=== PATIENT | female | born 1995 | race Caucasian/White ===

== ENCOUNTER 2024-05-24 09:12 | Outpatient (REF) | payer MEDICAID, SELFPAY ==
[2024-05-24 12:21] LABS: Alanine Aminotransferase 13 U/L (0-31); Albumin Level 4.3 g/dL (3.5-5.0); Alkaline Phosphatase 57 U/L (39-117); Anion Gap 11 (12-20); Aspartate Amino Transferase 26 U/L (5-31); Bilirubin Total 0.4 mg/dL (0.0-1.0); Blood Urea Nitrogen 12 mg/dL (9-16); Calcium 9.5 mg/dL (8.4-10.2); Carbon Dioxide 25 mmol/L (22-29); Chloride 109 mmol/L (96-108); Estimated Glomerular Filt Rate > 60; Glucose Random 90 mg/dL (60-115); Sodium 141 mmol/L (135-145); Total Protein 6.9 g/dL (6.5-8.0)
[2024-05-24 12:23] LABS: TSH reflex Free T4 1.17 uIU/mL (0.32-4.0)
[2024-05-29 13:49] LABS: Testosterone-Albumin 4.6 g/dL (3.6-5.1); Testosterone-Bioavailable 6.1 ng/dL (0.5-8.5); Testosterone-Free 2.9 pg/mL (0.2-5.0); Testosterone-SHBG 56 nmol/L (17-124); Testosterone-Total 38 ng/dL (2-45)
[2024-05-31 09:03] LABS: Prolactin 5.6 ng/mL
[2024-05-31 12:22] LABS: DHEA Sulfate 169 mcg/dL (14-349)
== END 2024-05-24 09:13 | disposition home or self-care (01) ==
LOC: HO.HHCL 09:12
PROVIDERS: Visit Provider Registered Nurse
DX: L68.0 Hirsutism (principal)
CPT/HCPCS: 36415; 80053; 82627; 83498; 84146; 84403; 84443

== ENCOUNTER 2024-10-07 13:15 | Outpatient (REF) | payer MEDICAID, SELFPAY ==
--- OUTSIDE RECORDS SUMMARY | 2024-10-07 13:44 | XMS_ITS | Encounter Summary ---
Author Organization [employer] Address [address] [place] [address] 7 [place] [address] Care Team Providers Care Line Closer Name Role Phone [facility] Primary Care Provider [phone] Reason for Visit * Reason Onset Date Comments Nurse Triage 10/05/2024 Encounter Details Date Type Department Care Team ([facility] st Contact Info) Description 10/05/2024 Telephone [facility] MEDICINE [address] [place], [place] [phone] [facility] [address] [place] [address] Nurse Triage Social History Tobacco Use Types Packs/Day Years Used Date Smoking Tobacco: Never Smokeless Tobacco: Never Alcohol Use Standard Drinks/Week Comments Never 0 (1 standard drink = 0.6 oz pur e alcohol) Depression Answer Date Recorded Patient Health Questionnaire-9 Score 17 05/23/2024 Patient Health Questionnaire-9 Score 17 05/23/2024 Last PHQ-9: Questionnaire Data Not on file 1 Housing Stability Answer Date Recorded What is your housing situation today? I have jorge silverio 05/23/[address] you li ve. Do you have problems with any of the following? None of the above 05/23/2024 Food Insecurity Answer Date Recorded Within the past 12 months, y ou worried that your food would run out before you got money to buy more: Often true 05/23/2024 Within the past 12 months,th e food you bought just didn't last and you didn't have enough money to get more: Often true 02/2024 Transportation Answer Date Recorded In the past 12 months, has l ack of transportation kept you from medical appts, meetings, work or from getting things needed for daily living? No 05/23/2024 Utilities Answer Date Recorded In the past 12 months, has t he electric, gas, oil or water company threatened to shut off services in your home? No 05/23/2024 Depression Answer Date Recorded Patient Health Questionnaire-2 Score 4 05/23/2024 Internet Access Answer Date Recorded Internet Access Q1 Yes 05/23/2024 Internet Access Q2 Not on file 05/23/2024 Comments No Sex and Gender Information Value Date Recorded Sex Assigned at Female 06/16/2022 10:31 AM EDT Legal Sex Female 10:31 AM EDT Gender Identity Female 06/16/2022 10:31 AM EDT Sexual Orientation Choose not to disclose 2021 10:31 AM EDT documented as of this encounter Miscellaneous Notes * Telephone Encounter - Yanely William, [place] - 10/05/2024 4:12 PM EST Triage call returned to patient who reports ongoing issue with excessive sweating. Patient notes ithas been since last child was born three years ago. Feels that it may be hormonal but that she has not discussed it with PCP. Patient with known PCOS and had tubal ligation. Last menses 09/17/24. Has ex cessive perspiration that she feels is sometimes triggered with emotion. If she is happy and going somewhere she may have to change her clothes as sweat soaks axilla, groin and sometimes stomach area. Patient does not get facial flushing and does not feel hot when this happens. Patient also with concern of possible STI exposure with some pelvic discomfort to the left side. No current fever or postural changes. No nausea or vomiting. No vaginal discharge or odor. Disposition reviewed and patientin agreement with plan. No PCP or Team appts. Available at time of call. [facility] hours and availability provided for patient evaluation. Triage nurse informed the patient may have a wait of 1-2 hours because Walk In [facility] may have delays due to patient volume or symptom acuity. Insurance verified as active. Multiple (2) protocols were used on this call. Disposition for Call: See in Office or Video Visit Today or Tomorrow Protocol Used: No Protocol Available (Adult) Protocol-Based Disposition: See in Office or Video Visit Today or Tomorrow Video visit not offered Positive Triage Question: * Nursing judgment * All higher-acuity triage questions were negative Care Advice Discussed: * Reasons To Call Back - New symptoms develop - You become worse Protocol Used: Pelvic Pain - Female (Adult) Protocol-Based Disposition: See in Office or Video Visit within 3 Days Positive Triage Question: * Patient is worried they have a sexually transmitted infection (STI) * All higher-acuity triage questions were negative Care Advice Discussed: * Pain Medicines * Reasons To Call Back - Severe pain lasts over 1 hour - Constant pain lasts over 2 hours - Intermittent pain (comes and goes, cramps) lasts over 48 hours - You become worse * Telephone Encounter - Kristan Raymond - 10/05/2024 3:50 PM EST Symptom: Excessive Sweating Outcome: Schedule an appointment to be seen within 3 days Reason: Caller denied all higher acuity questions The caller accepted this outcome. documented in this encounter Plan of Treatment Not on file documented as of this encounter Visit Diagnoses Not on filedocumented in this encounter Additional Health Concerns Assessment Noted Time PHQ-9 Depression Total Score: 17 024 2:42 PM EDT documented as of this encounter Care Teams Line Closer Relationship Specialty Start Date End Date GreendaleTash FNP [address] [place] [id number] PCP - General Family Medicine 03/10/24 documented as of this encounter
--- OUTSIDE RECORDS SUMMARY | 2024-10-07 13:44 | XMS_ITS | Clinical Summary ---
Author Organization [facility] Address [address] [place] [address] Phone Care Team Providers Care Loom Control Chain Builder Name Role Phone Paz Hooker PRODUCT DEVELOPMENT SPECIALIST Primary Care Provider [phone] Allergies No known active allergies Encounters Date Type Department Care Team Description 08/16/2024 9:45 AM EST Office Visit Orthopedic Surgery [address] [phone] Davonte Armstrong DPM Bilateral foot pain (Primary Dx); Pes planus of both feet; Metatarsalgia of right foot; Metatarsalgia of left foot; Eccrine poroma of foot, left from Last 3 Months Social History Tobacco Use Types Packs/Day Years Used Date Smoking Tobacco: Never Assessed Comments Unknown Sex and Gender Information Value Date Recorded Sex Assigned at Not on file Legal Sex Female 1:01 PM EST Gender Identity Not on file Sexual Orientation Not on file Last Filed Vital Signs Vital Sign Reading Time Taken Comments Blood Pressure - - Pulse - - Temperature - - Respiratory Rate - - Oxygen Saturation - - Inhaled Oxygen Concentration - - Weight 74.8 kg (165 lb) 08/16/2024 10:16 AM EST Height 165.1 cm (5' 5 ) 08/16/2024 10:16 AM EST Body Mass Index 27.46 08/16/2024 10:16 AM EST Plan of Treatment Upcoming Encounters Date Type Department Care Team (Late st Contact Info) Description 10/10/2024 9:15 AM EST Office Visit Orthopedic Surgery [facility] [address] [phone] Davonte Armstrong DPM [address] [address] Health Maintenance Due Date Last Done Comments COVID-19 Vaccine (#1) 1998 Hepatitis B Vaccines (1 of 3 - 19+ 3-dose series) 2012 Pneumococcal Vaccine: Pediatrics (0 to 5 Years) and At-Risk Patients (6 to 64 Years) (1 of 2 - PCV) 2012 Cervical Cancer Screening: P ap Smear 2014 Hepatitis C Screening 09/15/2023 Social Influencers of Health Screening 09/15/2023 Influenza Vaccine (#1) 2024 05/31/2018 Depression Screening 05/23/2025 05/23/2024 DTaP,Tdap,and Td Vaccines (3 - Td or Tdap) 03/05/2032 03/05/2022, 10/11/2018 HIV Screening Completed 03/05/2022 HIB Vaccines Aged Out No longer eligi ble based on patient's age to complete this topic HPV Vaccines Aged Out No longer eligi ble based on patient's age to complete this topic Hepatitis A Vaccines Aged Out No long er eligible based on patient's age to complete this topic IPV Vaccines Aged Out No longer eligi ble based on patient's age to complete this topic MMR Vaccines Aged Out No longer eligi ble based on patient's age to complete this topic Meningococcal ACWY Vaccine Aged Out N o longer eligible based on patient's age to complete this topic Meningococcal B Vacine Aged Out No lo nger eligible based on patient's age to complete this topic RSV Immunization Patients Under 20 months Aged Out No longer eligible b ased on patient's age to complete this topic Varicella Vaccines Aged Out No longer eligible based on patient's age to complete this topic Procedures Procedure Name Priority Date/Time Associated Diagnosis Comments XR FOOT 3+ VIEWS BILAT Routine 08/16/2024 10:06 AM EST Bilateral foot pain from Last 3 Months Results * XR Foot 3+ Views bilat (08/16/2024 10:06 AM EST) Anatomical Region Laterality Modality Lower Extremities, Foot Bilateral Computed Radiography Narrative 08/30/2024 7:50 PM EST Left foot 3 views weightbearing: Rectus alignment of the forefoot on the hindfoot. ??No fractures or dislocations. ??No joint space narrowing. ?? Enlarged tailor's bunion with frontal plane rotation and contracture of the fifth digit Right foot 3 views weightbearing: No fractures or dislocations. ??No joint space narrowing. ??Increased kites angle with talar head uncovering. ?? Slight hallux interphalangeal joint abductus. ??Large tailor's bunion with rotational deformity of the fifth digit us Davonte Armstrong DPM IMG XR PROCEDURES Final Res ult from Last 3 Months Insurance MEDICAID - [place] Care Teams Loom Control Chain Builder Relationship Specialty Start Date End Date Paz Hooker FNP [address] [place] [address] PCP - General Nurse Practitioner 05/31/24
--- OUTSIDE RECORDS SUMMARY | 2024-10-07 13:44 | XMS_ITS | Encounter Summary ---
Author Organization [employer] Address [address] [facility] 7 [place] [address] Care Team Providers Care Foil Stamp Operator Name Role Phone [employer]sh Painting TACK CLEANER Primary Care Provider [phone] Encounter Details Date Type Department Care Team ([facility] st Contact Info) Description 10/07/2024 9:45 AM EST Office Visit [facility] MED[facility]INE [address] [place], [place] [phone] Paz Hooker NP [address] [place], [place] [phone] Vaginal discharge (Primary Dx); Exposure to sexually transmitted infection Social History Tobacco Use Types Packs/Day Years [...] AM EDT documented as of this encounter Last Filed Vital Signs Vital Sign Reading Time Taken Comments Blood Pressure 102/67 10/07/2024 10:10 AM EST Pulse 69 10/07/2024 10:10 AM EST Temperature 36.4 ??C (97.5 ??F) 10/07/2024 10:[address] Respiratory Rate 18 10/07/2024 10:10 AM EST Oxygen Saturation 99% 10/07/2024 10:10 AM EST Inhaled Oxygen Concentration - - Weight 53.8 kg (118 lb 9.6 oz) 10/07/2024 10:10 AM EST Height 152.4 cm (5') 10/07/2024 10:10 AM EST Body Mass Index 23.16 10/07/2024 10:10 AM EST documented in this encounter Progress Notes * Paz Hooker, JOSE - 10/07/2024 9:45 AM EST Subjective Archana Wong is a 28 y.o. female who presents to the office for follow up visit - chronic conditions. Current concerns: Vaginal discharge, pt reports partner has history of cheating Pain during intercourse started 2 days ago, no bleeding, some discharge, mild odor bloating, has happened before did not have a pain with a yeast infection Unprotected intercourse- uncertain if partner is seeing other people Tubal ligation No burning on urination Patient Active Problem List Diagnosis Abdominal trauma Anxiety Body mass index (BMI) of 20 to 24 Exercise-induced asthma Genital herpes simplex Migraine headache PCOS (polycystic ovarian syndrome) Plantar callus Persistent depressive disorder Stress Vaginal discharge Exposure to sexually transmitted infection Pap 03/07 nil, hpv neg Review of Systems Constitutional: Negative for activity change. HENT: Negative for congestion. Respiratory: Negative for apnea. Cardiovascular: Negative for chest pain. Genitourinary: Positive for pelvic pain. Negative for difficulty urinating and urgency. Musculoskeletal: Negative for arthralgias. Neurological: Negative for dizziness and facial asymmetry. Hematological: Negative for adenopathy. Objective Visit Vitals BP 102/67 (BP Location: Left arm, Patient Position: Sitting, BP Cuff Size: Adult) Pulse 69 Temp 97.5 ??F (36.4 ??C) (Oral) Resp 18 Ht 5' (1.524 m) Wt 118 lb 9.6 oz (53.8 kg) SpO2 99% BMI 23.16 kg/m?? OB Status Having periods Smoking Status Never BSA 1.51 m?? Physical Exam Constitutional: Appearance: Normal appearance. Cardiovascular: Rate and Rhythm: Regular rhythm. Heart sounds: Normal heart sounds. Pulmonary: Breath sounds: Normal breath sounds. Abdominal: Palpations: Abdomen is soft. Tenderness: There is no abdominal tenderness. Genitourinary: General: Normal vulva. Labia: Right: No rash. Left: No rash. Vagina: Vaginal discharge present. Cervix: Discharge and friability present. No cervical motion tenderness or erythema. Uterus: Not enlarged. Neurological: Mental Status: She is alert. Assessment/Plan Problem List Items Addressed This Visit Vaginal discharge - Primary Current Assessment & Plan And pain with intercourse, Reasuring exam though scant discharge was noted, Testing as ordered below Barrier protection reviewed, Pt has had tubal ligation Will treat pending results of tests Relevant Orders Chlamydia/N. Gonorrhoeae RNA, TMA, Urogenitial Bacterial Vaginosis Panel Exposure to sexually transmitted infection Relevant Orders HIV-1/2 Antigen and Antibodies, Fourth Generation, with Reflexes Hepatitis C Antibody with Reflex to HCV, RNA, Quantitative, Real-Time PCR RPR (Monitor) with Reflex to Titer Current Outpatient Medications Medication Sig Dispense Refill acetaminophen (Tylenol) 500 MG tablet Take 2 tablets (1,000 mg) by mouth every 6 (six) hours if needed for moderate pain or fever for up to 25 doses. 50 tablet 0 albuterol (ProAir HFA) 108 (90 Base) MCG/ACT inhaler Inhale 2 puffs every 4 (four) hours if needed for shortness of breath or wheezing. 18 g 2 ibuprofen 400 MG tablet Take 1 tablet (400 mg) by mouth every 6 (six) hours if needed for moderate pain or fever for up to 30 doses. 30 tablet 0 ketoconazole (NIZOral) 2 % cream Apply bid to affected area of foot 60 g 3 lidocaine (Lidoderm) 5 % patch Apply topically to affected areas. Leave on for up to 12 hours 30 patch 1 Salicylic Acid 40 % misc Apply 1 each topically every other day if needed (callus and corns). Applydirectly over affected area; leave in place for 48 hours. May repeat procedure every 48 hours as needed for up to 14 days. 25 each 1 No current facility-administered medications for this visit. documented in this encounter Miscellaneous Notes * Assessment & Plan Note - Paz Hooker NP - 10/07/2024 10:29 AM ESTAssociated Problem(s): Vaginal discharge And pain with intercourse, Reasuring exam though scant discharge was noted, Testing as ordered below Barrier protection reviewed, Pt has had tubal ligation Will treat pending results of tests documented in this encounter Plan of Treatment Scheduled Orders Name Type Priority Associated Diagnoses Orde r Schedule HIV-1/2 Antigen and Antibodies, Fourth Generation, with Reflexes Lab Routine Exposure to sexually transmitted infection Expected: 10/07/2024 (Approximate), Expires: 10/07/2025 Hepatitis C Antibody with Reflex to HCV, RNA, Quantitative, Real-Time PCR Lab Routine Exposure to sexually transmitted infection Expected: 10/07/2024, Expires: 10/07/2025 RPR (Monitor) with Reflex to??Titer Lab Routine Exposure to sexually transmitted infection Expected: 10/07/2024, Expires: 10/07/2025 Chlamydia/N. Gonorrhoeae RNA, TMA, Urogenitial Microbiology Routine Vaginal discharge Ordered: 10/07/2024 Bacterial Vaginosis Panel Microbiology Routine Vaginal discharge Ordered: 10/07/2024 documented as of this encounter Visit Diagnoses Diagnosis Vaginal discharge- Primary Leukorrhea, not specified as infective Exposure to sexually transmitted infection documented in this encounter Additional Health Concerns Assessment Noted Time PHQ-9 Depression Total Score: 17 024 2:42 PM EDT documented as of this encounter Care Teams Foil Stamp Operator Relationship Specialty Start Date End Date Tash Painting FNP [address] [place] [id number] PCP - General Family Medicine 03/10/24 documented as of this encounter
--- OUTSIDE RECORDS SUMMARY | 2024-10-07 13:44 | XMS_ITS | Clinical Summary ---
Author Organization [employer] Address [address] [facility] [address] [place] [address] Care Team Providers Care Visual Artist Name Role Phone Tash Painting AGRICULTURAL PRODUCTION ENGINEER Primary Care Provider [phone] Allergies No known active allergies Medications * This document contains information received from the source organization and may not represent a complete record from that organization. ketoconazole (NIZOral) 2 % cream Apply bid to affected area of foot 60 g 3 3 Active albuterol (ProAir HFA) 108 (90 Base) MCG/ACT inhaler Inhale 2 puffs every 4 (four) hours if needed for shortness of breath or wheezing. 18 g 2 3 Active Salicylic Acid 40 % misc Apply 1 each topically every other day if needed (callus and corns). Apply directly over affected area; leave in place for 48 hours. May repeat procedure every 48 hours as needed for up to 14 days. 25 each 1 4 Active acetaminophen (Tylenol) 500 MG tablet Take 2 tablets (1,000 mg) by mouth every 6 (six) hours if needed for moderate pain or fever for up to 25 doses. 50 tablet 4 Active ibuprofen 400 MG tablet Take 1 tablet (400 mg) by mouth every 6 (six) hours if needed for moderate pain or fever for up to 30 doses. 30 tablet 4 Active lidocaine (Lidoderm) 5 % patchIndication s:Chronic bilateral low back pain with bilateral sciatica Apply topically to affected areas. Leave on for up to 12 hours 30 patch 1 4 Active Active Problems Problem Noted Date Diagnosed Date Vaginal discharge 10/07/2024 Assessment & Plan (10/07/2024 10:30 AM EST): And pain with intercourse, Reasuring exam though scant discharge was noted, Testing as ordered below Barrier protection reviewed, Pt has had tubal ligation Will treat pending results of tests Exposure to sexually transmitted infection 10/07 Persistent depressive disorder 05/23/2024 Assessment & Plan (05/23/2024 3:01 PM EDT): During [facility] Consult Archana presenting with depressed mood, Tearful, crying spells , irritable mood, loss of interests/pleasure , isolating, change in appetite or weight reduce appetite, changes in sleep difficulty falling asleep and difficulty staying asleep , psychomotor retardation, fatigue/loss of energy, difficulty concentrating, indecisiveness and excessive worry/anxiety, difficulty controlling worry, anxiety/worry associated to restlessness and/or feeling keyed-up/On edge , easily fatigued , irritability, and sleep disturbance difficulty falling asleep and difficulty staying asleep , and sense of dread ; for a period of 18+ mo, for most or all symptoms in the context of family issues. Archana has three children. Reports having a difficult time finding a routine that also prioritizes her needs. She was emotionally overwhelmed during session today. Pt has been hiding her emotions for so long due to fear of being judged by others. Pt reports struggling with anger since young. clinician engaged pt with active/reflective listening. Reviewed and assessed for risk, current stressors and protective factors. Explored strategies to use to create a routine at home where she could also take care of her needs. Discussed importance of improving her sleep hygiene and eat healthy. Pt was self-referred to [facility] programs for same-day appointments. Stress 05/23/2024 Assessment & Plan (05/23/2024 3:01 PM EDT): During [facility] Consult Archana presenting with depressed mood, Tearful, crying spells , irritable mood, loss of interests/pleasure , isolating, change in appetite or weight reduce appetite, changes in sleep difficulty falling asleep and difficulty staying asleep , psychomotor retardation, fatigue/loss of energy, difficulty concentrating, indecisiveness and excessive worry/anxiety, difficulty controlling worry, anxiety/worry associated to restlessness and/or feeling keyed-up/On edge , easily fatigued , irritability, and sleep disturbance difficulty falling asleep and difficulty staying asleep , and sense of dread ; for a period of 18+ mo, for most or all symptoms in the context of family issues. Archana has three children. Reports having a difficult time finding a routine that also prioritizes her needs. She was emotionally overwhelmed during session today. Pt has been hiding her emotions for so long due to fear of being judged by others. Pt reports struggling with anger since young. clinician engaged pt with active/reflective listening. Reviewed and assessed for risk, current stressors and protective factors. Explored strategies to use to create a routine at home where she could also take care of her needs. Discussed importance of improving her sleep hygiene and eat healthy. Pt was self-referred to [facility] programs for same-day appointments. Plantar callus 01/18/2024 Assessment & Plan (01/19/2024 2:52 PM EDT): Referral to podiatry for ongoing management Abdominal trauma 04/07/2023 Body mass index (BMI) of 20 to 24 04/07/2023 Genital herpes simplex 04/07/2023 Overview (04/07/2023): Dx'd via labwork 05/2018 via [email or web address]. Had never had an outbreak. Migraine headache 04/07/2023 Overview (04/07/2023): Had more migraines when in school, but not often now. Saw specialist in past. Now will just try to sleep rather than take otc meds for the migraine/[place] and it helps. Hasn't had one in a long time now. Anxiety 03/05/2022 Assessment & Plan (05/23/2024 3:01 PM EDT): During [facility] Consult Archana presenting with depressed mood, Tearful, crying spells , irritable mood, loss of interests/pleasure , isolating, change in appetite or weight reduce appetite, changes in sleep difficulty falling asleep and difficulty staying asleep , psychomotor retardation, fatigue/loss of energy, difficulty concentrating, indecisiveness and excessive worry/anxiety, difficulty controlling worry, anxiety/worry associated to restlessness and/or feeling keyed-up/On edge , easily fatigued , irritability, and sleep disturbance difficulty falling asleep and difficulty staying asleep , and sense of dread ; for a period of 18+ mo, for most or all symptoms in the context of family issues. Archana has three children. Reports having a difficult time finding a routine that also prioritizes her needs. She was emotionally overwhelmed during session today. Pt has been hiding her emotions for so long due to fear of being judged by others. Pt reports struggling with anger since young. clinician engaged pt with active/reflective listening. Reviewed and assessed for risk, current stressors and protective factors. Explored strategies to use to create a routine at home where she could also take care of her needs. Discussed importance of improving her sleep hygiene and eat healthy. Pt was self-referred to [facility] programs for same-day appointments. Exercise-induced asthma 11/11/2016 Overview (04/07/2023): Albuterol prn. PCOS (polycystic ovarian syndrome) 11/11/2016 Encounters Date Type Department Care Team Description 10/07/2024 9:45 AM EST Office Visit [facility] [address] [place] [phone] Paz Hooker NP Vaginal discharge (Primary Dx); Exposure to sexually transmitted infection 10/05/2024 Telephone [facility] [address] [place] [address] Tash Painting FNP Nurse Triage from Last 3 Months Immunizations Name Administration Dates Next Due Influenza, IIV3, injectable 05/31/2018 Tdap 03/05/2022,10/11/2018 Family History Medical History Relation Name Comments Diabetes type II Brother Heart murmur Brother Hypertension Father Colon cancer Father's Brother Heart murmur Mother Breast cancer Mother's Sister Relation Name Status Comments Brother Father Father's Brother Mother Mother's Sister Social History Tobacco Use Types Packs/Day Years Used Date Smoking Tobacco: Never Smokeless Tobacco: Never Tobacco Cessation:Counseling Given: Not Answered Alcohol Use Standard Drinks/Week Comments Never 0 [...] not to disclose 2021 10:31 AM EDT Last Filed Vital Signs Vital Sign Reading [...] Mass Index 23.16 10/07/2024 10:10 AM EST Plan of Treatment Health Maintenance Due Date Last Done Comments Family Planning (PISQ) 2008 Hepatitis B Vaccines (1 of 3 - 19+ 3-dose series) 2012 Pneumococcal Vaccine: Pediatrics (0 to 5 Years) and At-Risk Patients (6 to 49) Years) (1 of 2 - PCV) 2012 COVID-19 Vaccine ( - 2023-2 5 season) 2024 Influenza Vaccine (#1) 2024 05/31/2018 Depression Monitoring (PHQ-9) 11/21/2024, 05/23/2024 Pap Smear 03/05/2025 03/05/2022 Alcohol/Substance Use Screening 05/23/2025 05/23/2024 Depression Screening 05/23/2025 05/23/2024, 05/23/2024 SDOH Screening 05/23/2025 05/23/2024 Tobacco Screening 10/07/2025 10/07/2024 Cervical Cancer Screening 03/05/2027 HPV/Cotest 03/05/2027 03/05/2022 DTaP/Tdap/Td Vaccines (3 - T d or Tdap) 03/05/2032 03/05/2022, 10/11/2018 Zoster Vaccines (1 of 2) 12/04/2043 RSV Patients and Patients Aged 60 years or older (1 - 1-dose 75+ series) 2068 HIV Screening Completed 03/05/2022 Hepatitis C Screening Completed 03/05/2022 HIB Vaccines Aged Out [...] patient's age to complete this topic Meningococcal Vaccine Aged Out No jourdan eulalia eligible based on patient's age to complete this topic RSV under 20 months Aged Out No longe r eligible based on patient's age to complete this topic Rotavirus Vaccines Aged Out No longer eligible based on patient's age to complete this topic Procedures Procedure Name Priority Date/Time Associated Diagnosis Comments ZZZ HISTORICAL HEPATITIS C AB W/REFL TO HCV RNA, QN, PCR Routine 03/05/2022 11:32 AM EDT HIV 1/2 ANTIGEN/ANTIBODY, FOURTH GENERATION W/RFL Routine 03/05/2022 11:32 AM EDT THINPREP IMAGING PAP AND HPV MRNA E6/E7, WITH CT/NG, TRICHOMONAS Routine 03/05/2022 12:00 AM EDT from Last 3 Months or Most Recently Relevant to Health Maintenance Results * HEPATITIS C AB W/REFL TO HCV RNA, QN, PCR (03/05/2022 11:32 AM EDT) HEPATITIS C ANTIBODY NON-REACT PORTIA NON-REACT PORTIA [facility] INDEX 0.10 <1.00 [facility] Comment: ?? HCV antibody was non-reactive. There is no laboratory ?? evidence of HCV infection. ?? In most cases, no further action is required. However, if recent HCV exposure is suspected, a test for HCV RNA (test code 90020) is suggested. ?? For additional information please refer to http://education.[email or web address]faq/JOK83y5 (This link is being provided for informational/ educational purposes only.) ?? 03/05/2022 11:3 2 AM EDT us Gwen Zacarias NP HISTORICAL/NON ORDERABLE LABS F inal Result [facility] [address] * HIV 1/2 ANTIGEN/ANTIBODY,FOURTH GENERATION W/RFL (03/05/2022 11:32 AM EDT) HIV-1/2 ANTIGEN AND ANTIBODIES, 4TH GENERATION W/ REFLEX NON-REACT PORTIA NON-REACT PORTIA [facility] Comment: HIV-1 antigen and HIV-1/HIV-2 antibodies were not detected. There is no laboratory evidence of HIV infection. ?? PLEASE NOTE: This information has been disclosed to you from records whose confidentiality may be protected by state law. ??If your state requires such protection, then the state law prohibits you from making any further disclosure of the information without the specific written consent of the person to whom it pertains, or as otherwise permitted by law. A general authorization for the release of medical or other information is NOT sufficient for this purpose. ? For additional information please refer to [email or web address]/JEH130 (This link is being provided for informational/ educational purposes only.) ? The performance of this assay has not been clinically validated in patients less than 2 years old. ?? 03/05/2022 11:3 2 AM EDT Gwen Zacarias NP LAB BLOOD ORDERABLES Final Resu lt [facility] [address] * THINPREP TIS PAP AND HPV mRNA E6/E7, CT/NG, TRICH (03/05/2022 12:00 AM EDT) Chlamydia trachomatis RNA, TMA, Urogenital NOT DETECTED NOT DETECTED [facility] Clinical Information: None given [facility] COMMENT SEE COMMENT [facility] Comment: The analytical performance characteristics of this assay, when used to test SurePath(TM) specimens have been determined by [facility]. The modifications have not been cleared or approved by the FDA. This assay has been validated pursuant to the CLIA regulations and is used for clinical purposes. ?? For additional information, please refer to [email or web address] Huff [employer]/faq/MMT711 (This link is being provided for information/ educational purposes only.) ?? COMMENT SEE COMMENT [facility] Comment: EXPLANATORY NOTE: ? The Pap is a screening test for cervical cancer. It is ?? not a diagnostic test and is subject to false negative ?? and false positive results. It is most reliable when a ?? satisfactory sample, regularly obtained, is submitted ?? with relevant clinical findings and history, and when ?? the Pap result is evaluated along with historic and ?? current clinical information. ?? COMMENT: This Pap test has been evaluated with computer assisted technology. [facility] Trainmaster: SEE COMMENT [facility] Comment: YONATHAN CT(ASCP) CT screening location: [address] ??[id number] HPV nRNA E6/E7 Not Detected Not Detected [facility] Comment: Methodology: Global Lead-Mediated Amplification This assay detects E6/E7 viral messenger RNA (mRNA) from 14 high-risk HPV types (16,18,31,33,35,39,45,51,52,56,58,59,66,68). ? Cervical sources are required for HPV testing. If a vaginal source from a patient who has had a total hysterectomy with removal of cervix was ?? submitted, please contact the testing laboratory for alternative testing options. ?? For additional information, please refer to http://[email or web address]faq/YNV244f9 (This link if provided for information/ educational purposes only.) Infection Fungal organisms morphologically consistent with Jeannine spp. [facility] Interpretation/Re sult: Negative for intraepithelial lesion or malignancy. [facility] LMP: NONE GIVEN [facility] Neisseria gonorrhoeae RNA, TMA, Urogenital NOT DETECTED NOT DETECTED [facility] Prev. BX: NONE GIVEN [facility] Prev. PAP: NONE GIVEN [facility] SOURCE: None given [facility] Statement Of Adequacy: SEE COMMENT [facility] Comment: Satisfactory for evaluation. Endocervical/transformation zone component absent. Age and/or menstrual status not provided Trichomonas vaginalis, QL, TMA, PAP Vial NOT DETECTED NOT DETECTED [facility] Comment: The analytical performance characteristics of this assay have been determined by [facility]. The modifications have not been cleared or approved by the FDA. This assay has been validated pursuant to the CLIA regulations and is used for clinical purposes. ?? For additional information, please refer to http://[email or web address] faq/[email or web address] (This link is being provided for information/ educational purposes only.) ?? 03/05/2022 Gwen Zacarias STOPPER MAKER HELPER LAB PATHOLOGY ORDERABLES Final Result [facility] [address] from Last 3 Months or Most Recently Relevant to Health Maintenance [email or web address] Care Teams Visual Artist Relationship Specialty Start Date End Date Tash Painting FNP [address] [place] [id number] PCP - General Family Medicine 03/10/24
[2024-10-08 02:24] LABS: CT PCR NOT DETECTED (Not Detect.); NG PCR NOT DETECTED (Not Detect.)
[2024-10-08 11:53] LABS: Bacterial Vaginosis PCR POSITIVE (Negative); Candida Group PCR NOT DETECTED (Not Detect); Candida glab krusei PCR NOT DETECTED (Not Detect); Trichomonas vaginalis PCR NOT DETECTED (Not Detect)
== END 2024-10-07 13:16 | disposition home or self-care (01) ==
LOC: HO.LNP 13:15
PROVIDERS: Visit Provider Nurse Practitioner Family
DX: N89.8 Other specified noninflammatory disorders of vagina (principal)
CPT/HCPCS: 81515; 87491; 87591

== ENCOUNTER 2025-03-20 09:23 | Outpatient (REF) | payer MEDICAID, SELFPAY ==
--- OUTSIDE RECORDS SUMMARY | 2025-03-20 09:51 | XMS_ITS | Clinical Summary ---
Author Organization [address] [facility] Address [address] [place] [address] Phone Care Team Providers Care Barge Hand Name Role Phone Paz Hooker ACETYLENE BURNER Primary Care Provider [phone] Allergies No known active allergies Medications No known medications Encounters Date Type Department Care Team Description 02/07/2025 9:00 AM EDT Office Visit [facility] [place] [id number] [phone] Davonte Armstrong DPM Pain in both feet (Primary Dx); Metatarsalgia of left foot; Metatarsalgia of right foot; Pes planus of both feet from Last 3 Months Social History Tobacco [...] - - Weight 74.8 kg (165 lb) 02/07/2025 8:41 AM EDT Height 165.1 cm (5' 5 ) 02/07/2025 8:41 AM EDT Body Mass Index 27.46 02/07/2025 8:41 AM EDT Plan of Treatment Upcoming Encounters Date Type Department Care Team (Late st Contact Info) Description 04/11/2025 9:45 AM EDT Office Visit [facility] [place] [id number] [phone] Davonte Armstrong DPM [address] [address] Health Maintenance Due Date Last Done Comments COVID-19 Vaccine (#1) 1998 Hepatitis B Vaccines (1 of 3 - 19+ 3-dose series) 2012 Pneumococcal Vaccine: Pediatrics (0 to 5 Years) and At-Risk Patients (6 to 49 Years) (1 of 2 - PCV) 2012 Cervical Cancer Screening: P ap Smear 2014 Hepatitis C Screening 09/15/2023 Social Influencers of Health Screening 09/15/2023 Depression Screening 08/17/2024 Influenza Vaccine (#1) 2025 05/31/2018 DTaP,Tdap,and Td Vaccines (3 - Td or [...] age to complete this topic Meningococcal B Vaccine Aged Out No l onger eligible based on patient's age to complete this topic RSV Immunization Patients Under 20 months Aged Out No longer eligible b ased on patient's age to complete this topic Varicella Vaccines Aged Out No longer eligible based on patient's age to complete this topic Insurance [place] Care Teams Barge Hand Relationship Specialty Start Date End Date Paz Hooker FNP [address] [place] [id number] PCP - General Nurse Practitioner 05/31/24
[2025-03-20 12:06] LABS: Syphilis Screen Nonreactive (Nonreactive)
[2025-03-20 12:12] LABS: HBS Num1 0.51 mIU/mL (0-7.99); HBc Num1 0.12 S/CO (0.00-0.79); HBsAGNum1 0.43 S/CO (0.00-0.99); HIV Num 1 0.05 S/CO (0.00-0.99); Hepatitis B Surface Antigen Negative (Negative); ~HepC Num1 0.18 S/CO (0.00-0.79); ~Hepatitis B Surface Antibody NONREACTIVE (Nonreactive); ~Hepatitis C Antibody Nonreactive (Nonreactive)
[2025-03-20 12:13] LABS: HIV Num 1 0.04 S/CO (0.00-0.99); ~HepC Num1 0.19 S/CO (0.00-0.79); ~Hepatitis C Antibody Nonreactive (Nonreactive)
[2025-03-21 10:24] LABS: Bacterial Vaginosis PCR POSITIVE (Negative); Candida Group PCR DETECTED (Not Detect); Candida glab krusei PCR NOT DETECTED (Not Detect); Trichomonas vaginalis PCR NOT DETECTED (Not Detect)
[2025-03-21 10:53] LABS: CT PCR NOT DETECTED (Not Detect.); NG PCR NOT DETECTED (Not Detect.)
== END 2025-03-20 09:24 | disposition home or self-care (01) ==
LOC: HO.HHCL 09:23
PROVIDERS: Nurse Practitioner Family; PCP Nurse Practitioner; Visit Provider Nurse Practitioner
DX: Z11.3 Encounter for screening for infections with a predominantly sexual mode of transmission (principal); Z11.4 Encounter for screening for human immunodeficiency virus [HIV]; Z11.59 Encounter for screening for other viral diseases; Z11.8 Encounter for screening for other infectious and parasitic diseases; Z20.2 Contact with and (suspected) exposure to infections with a predominantly sexual mode of transmission
CPT/HCPCS: 36415; 81515; 86592; 86704; 86706; 86780; 86803; 87070; 87340; 87389; 87491; 87591